=== PATIENT | female | born 1985 | race African-American/Black ===

== ENCOUNTER 2018-03-23 09:13 | Emergency (ER) | payer OTHER | END 2018-03-23 12:17 | disposition home or self-care (01) | LOC: M ED 09:13 | DX: N60.42 Mammary duct ectasia of left breast (principal); E28.2 Polycystic ovarian syndrome | CPT/HCPCS: 76642 ==

== ENCOUNTER 2018-08-06 17:15 | Emergency (ER) | payer OTHER ==
[~2018-08-06] VITALS: Ht 160 cm; Wt 93.5 kg
[~2018-08-06 17:15] MED LIST: VITA100067 PO
[2018-08-06] MEDS ORDERED: bcp PO (17:20)
[2018-08-06] MEDS ORDERED: SM I160T PO (17:20)
[2018-08-06 18:18] LABS: BASO % 0.3 % (0.0-1.0); EOS # 0.1 10^3/uL (0.0-0.50); EOS % 1.6 % (0.0-3.0); HEMOGLOBIN 10.7 g/dl (12.0-15.5); LYMPH # 2.4 10^3/uL (1.5-4.5); LYMPH % 40.7 % (24.0-44.0); MEAN CORPUSCULAR HEMOGLOBIN 29.2 pg (27.0-33.0); MEAN CORPUSCULAR HGB CONC 30.6 g/dl (32.0-36.5); MEAN CORPUSCULAR VOLUME 95.4 fl (80.0-96.0); MONO # 0.4 10^3/uL (0.0-0.8); MONO % 7.1 % (0.0-5.0); NEUTROPHILS # 2.9 10^3/uL (1.8-7.7); NEUTROPHILS % 50.1 % (36.0-66.0); PLATELET COUNT, AUTOMATED 367 10^3/uL (150-450); RED BLOOD COUNT 3.67 10^6/uL (4.00-5.40); WHITE BLOOD COUNT 5.8 10^3/uL (4.0-10.0)
[2018-08-06 18:38] LABS: ALBUMIN 3.6 GM/DL (3.2-5.2); ALT/SGPT 21 U/L (12-78); BILIRUBIN,DIRECT < 0.1 MG/DL (0.0-0.2); BILIRUBIN,TOTAL 0.2 MG/DL (0.2-1.0); BLOOD UREA NITROGEN 7 MG/DL (7-18); CALCIUM LEVEL 8.9 MG/DL (8.5-10.1); CARBON DIOXIDE LEVEL 26 MEQ/L (21-32); CHLORIDE LEVEL 112 MEQ/L (98-107); CREATININE FOR GFR 0.98 MG/DL (0.55-1.30); GLOMERULAR FILTRATION RATE > 60.0 (>60); GLUCOSE, FASTING 95 MG/DL (70-100); HCG, SERUM QUANTITATIVE < 1.0 MIU/ML; LIPASE 173 U/L (73-393); SODIUM LEVEL 142 MEQ/L (136-145); TOTAL PROTEIN 6.9 GM/DL (6.4-8.2)
[2018-08-06] MEDS ORDERED: NS 1,000 ML IV ONE (18:45)
[2018-08-06] MEDS ORDERED: ISOVUE-370 76% 100ML VIAL (Q9967) As Ordered ONE (18:45)
[2018-08-06] MEDS ORDERED: MORPHINE 2 MG/ML 1ML SYRINGE (J2270) IV ONE (18:45)
[2018-08-06] MEDS ORDERED: ONDANSETRON 4MG/2ML VIAL (J2405) IV ONE (18:45)
[2018-08-06] MEDS ORDERED: KETOROLAC 30 MG/ML VIAL (J1885) IV ONE (19:30)
--- NOTE | 2018-08-06 20:17 | REPVR ---
EXAM: CT Abdomen and Pelvis With Contrast EXAM DATE/TIME: 08/06/2018 7:19 PM CLINICAL HISTORY: 33 years old, female; Pain; Abdominal pain; Localized; Left lower quadrant (llq); Additional info: Llq abdominal pain, eval for diverticulitis TECHNIQUE: Imaging protocol: Axial computed tomography images of the abdomen and pelvis with intravenous contrast. Coronal and sagittal reformatted images were created and reviewed. Radiation optimization: All CT scans at this facility use at least one of these dose optimization techniques: automated exposure control; mA and/or kV adjustment per patient size (includes targeted exams where dose is matched to clinical indication); or iterative reconstruction. Contrast material: ISOVUE 370 Contrast volume: 100 ml Contrast route: IV COMPARISON: No relevant prior studies available. FINDINGS: Lower thorax: Unremarkable. ABDOMEN: Liver: Unremarkable. Gallbladder and bile ducts: No radiodense gallstones. No biliary ductal dilatation. Pancreas: Unremarkable. Spleen: Unremarkable. Adrenals: Unremarkable. Kidneys and ureters: Nonobstructing right renal calculus. No hydronephrosis. Stomach and bowel: No bowel wall thickening. No obstruction. No pneumatosis. Appendix: Normal. PELVIS: Bladder: Unremarkable. Reproductive: Somewhat lobular, heterogeneous uterus, likely due to fibroids and/or endometrial polyps. ABDOMEN and PELVIS: Intraperitoneal space: Trace nonspecific free pelvic fluid, likely physiologic. No organized fluid collection. No free air. Bones/joints: No acute osseous abnormality. Mild degenerative changes. Soft tissues: Small, fat-containing umbilical hernia. Vasculature: Unremarkable. No aneurysm. Lymph nodes: No pathologically enlarged lymph nodes. IMPRESSION: 1. No evidence of acute diverticulitis. 2. Somewhat lobular, heterogeneous uterus, likely due to fibroids and/or endometrial polyps. If clinically indicated, pelvic ultrasound may be obtained for further evaluation. 3. Additional findings, as above. Electronically signed by: Umair Vargas On 08/06/2018 20:17:06 PM
[2018-08-06 20:42] VITALS: BP 128/75
--- NOTE | 2018-08-07 06:42 | ED PDOC ---
Post-Departure Follow-Up ft [facility] fp faxed formal report of ct abd/p for fu. pt left ama. Jacqui Moreno MD Aug 07, 2018 06:42
== END 2018-08-06 22:38 | disposition left against medical advice (07) ==
LOC: M ED 17:15
DX: R10.32 Left lower quadrant pain (principal); Z79.3 Long term (current) use of hormonal contraceptives; Z79.899 Other long term (current) drug therapy; Z53.21 Procedure and treatment not carried out due to patient leaving prior to being seen by health care provider
CPT/HCPCS: 74177; 80048; 80076; 81001; 83605; 83690; 84702; 85025; 96361; 96374; 96375; 99284; J1885; J2270; J2405; Q9967

== ENCOUNTER → 2018-08-07 | Outpatient (CLI) | payer OTHER ==
[~2018-08-07] MED LIST changes: +SM I160T PO; +bcp PO
--- NOTE | 2018-08-07 08:20 | REP ---
Pelvic ultrasound including transabdominal, endovaginal and Doppler ultrasound assessment: Studies performed for suspected uterine fibroids and recent CT of the abdomen pelvis dated 08/06/2018. The uterus is anteverted, however the fundus is retroflexed. The uterus is enlarged measuring 10.5 x 5.8 x 6.6 cm. The myometrium is heterogeneous compatible with diffusely fibroid uterus. There are two focal fibroids in the posterior myometrium, one measuring up to 2.0 cm in diameter and the other measuring up to 3.4 cm in diameter. The endometrium is not thickened measuring up to 11 mm. The right ovary measures 4.7 x 1.9 x 1.9 cm. The left ovary measures 4.1 x 2.6 x 2.4 cm. There are no dominant ovarian masses or cysts. There is vascular flow in both ovaries. The Doppler resistive index of the parenchymal arteries in the right ovary is 0.601 left ovary 0.59. There is a small volume of free fluid in the posterior cul-de-sac. Impression: There is a diffusely fibroid enlarged uterus. There are two focal fibroids in the posterior myometrium as described. The uterus is anteverted, however the fundus is slightly retroflexed. The ovaries are unremarkable. There is a small volume of free fluid in the posterior cul-de-sac. Electronically Signed by Vasu Adorno MD 08/07/2018 08:12 A
== END ==
LOC: M RAD 06:39
PROVIDERS: ATTEND Nurse Practitioner Family
DX: N85.4 Malposition of uterus (principal); D25.9 Leiomyoma of uterus, unspecified